=== PATIENT | male | born 1995 | race Caucasian/White ===

== ENCOUNTER 2018-05-04 16:00 | Emergency (ER) | payer SELFPAY ==
[2018-05-04 16:07] LABS: BASOPHIL (%) 0.6 % (0-1); EOSINOPHIL (%) 1.7 % (0-5); EOSINOPHIL COUNT 0.1 K/uL (0-0.3); HEMATOCRIT 39.9 % (38.0-50.0); HEMOGLOBIN 14.1 G/DL (12.5-16.6); IMMATURE GRANULOCYTE (%) 0.6 % (0.0-0.7); LYMPHOCYTE (%) 27.2 % (15-42); MCH 28.7 PG (29.0-34.0); MCHC 35.3 G/DL (30.0-36.0); MCV 81.1 FL (86-99); MONOCYTE (%) 8.1 % (3-12); MONOCYTE COUNT 0.6 K/uL (0-0.8); NEUTROPHIL (%) 61.8 % (45-76); NEUTROPHIL COUNT 4.5 K/uL (1.8-6.4); PLATELET COUNT 209 K/uL (156-360); RBC DIS.WIDTH-CV 12.6 % (11.8-14.6); RBC DIS.WIDTH-SD 36.9 % (39-53); RED BLOOD COUNT 4.92 M/uL (4.00-5.50); WHITE BLOOD COUNT 7.3 K/uL (4.1-10.2)
[2018-05-04 16:20] LABS: AMYLASE 36 IU/L (1-118); CHLORIDE 106 mEq/L (99-109); POTASSIUM 3.7 mEq/L (3.7-5.4); SODIUM 140 mEq/L (136-147)
[2018-05-04 16:22] LABS: GLUCOSE 154 mg/dL (70-99)
[2018-05-04 16:25] LABS: CREATININE 1.2 mg/dL (0.6-1.3); SERUM ETHYL ALCOHOL < 10 mg/dL
[2018-05-04 16:26] LABS: UREA NITROGEN (BUN) 22 mg/dL (9-23)
[2018-05-04 16:27] LABS: GFR ESTIMATE (CALCULATED) > 59 mL/min/ (58.99-99999)
[2018-05-04 16:28] LABS: LIPASE 25 U/L (1.0-51.0)
[2018-05-04] MEDS ORDERED: KEFLEX500 MG PO (19:46)
== END 2018-05-04 20:35 | disposition home or self-care (01) ==
LOC: TRA 16:00
PROVIDERS: Emergency Medicine
DX: S91.012A Laceration without foreign body, left ankle, initial encounter (principal); S91.011A Laceration without foreign body, right ankle, initial encounter; S20.221A Contusion of right back wall of thorax, initial encounter; W09.1XXA Fall from playground swing, initial encounter
CPT/HCPCS: 71045; 73590; 73600; 80048; 81003; 82150; 83690; 85025; 86850; 86900; 86901; 99281; 99285; G0480; J3010